=== PATIENT | male | born 1965 | race Caucasian/White ===

== ENCOUNTER → 2017-01-19 | Outpatient (CLI) | payer MEDICAID ==
--- NOTE | 2017-01-20 14:47 | MR ---
EXAM DATE: 01/19/17 PATIENT'S AGE: 51 Patient: MERRY DANGELO Facility: [place], [place] Site . Site : [id number] Study: MRI Shoulder Left [id number]/27/2017 6:42:35 PM Ordering Physician: Janett Vuong Final Report: HISTORY: Left shoulder impingement syndrome. Left shoulder pain. Technique: MRI left shoulder without contrast. Comparison: None. Findings: Rotator cuff: Full-thickness tear of the anterior-mid supraspinatus tendon measuring 0.9 cm in AP dimension by 0.7 cm medial-lateral dimension. There is partial thickness tearing of the remainder of the supraspinatus tendon including foci of high-grade partial-thickness articular surface tearing. Infraspinatus tendon is thickened with intermediate intrasubstance signal. 0.3 x 0.2 mm low-grade partial-thickness articular surface tear of the mid infraspinatus tendon at the insertion. Subscapularis tendon is thickened with intermediate intrasubstance signal. Teres minor tendon is intact. Rotator cuff muscle bulk and signal intensity are within normal limits. Acromioclavicular joint and coracoacromial arch: Moderate AC joint degenerative changes with mild inferior hypertrophy. Hypertrophic changes exert mass effect on the superior supraspinatus muscle. Type 2 acromial morphology. Acromiohumeral interval measures 7-8 mm. Coracoacromial ligament is within normal limits. Coracoclavicular ligament is intact. Biceps-labral complex: Tendinosis and partial tearing of the proximal extra- articular and intra-articular long head biceps tendon. No biceps tendon subluxation. Linear fluid signal extending partially through the chondral labral junction of the posterior labrum at the 9 o`clock position (axial series 501 image 16) compatible with tear. Remainder of the labrum is intact. Glenohumeral joint: No focal cartilage defects. No joint effusion. Bones and soft tissues: No fracture. No marrow replacing process. Small amount of fluid in the subacromial-subdeltoid bursa. Deltoid is intact. Impression: 1. Full-thickness tear of the supraspinatus tendon anteriorly with partial thickness articular surface tearing of the remainder of the tendon. 2. Infraspinatus tendinosis with focal low-grade partial-thickness articular surface tear at the insertion. 3. Subscapularis tendinosis. 4. Long head biceps tendinosis and partial tearing. 5. Small posterior labral tear. 6. AC joint degenerative arthrosis. Dictated by Ronnell Francis MD @ Jan 20 2017 9:37AM (Electronic Signature) Report Signed by Proxy and Original Signed Document filed in the Medical Record. ABBEY
== END ==
LOC: MW.MRI 17:06
PROVIDERS: ATTEND Physician Assistant
DX: M75.41 Impingement syndrome of right shoulder (principal); M75.42 Impingement syndrome of left shoulder; S46.812A Strain of other muscles, fascia and tendons at shoulder and upper arm level, left arm, initial encounter; M75.82 Other shoulder lesions, left shoulder; M75.22 Bicipital tendinitis, left shoulder; M19.012 Primary osteoarthritis, left shoulder
CPT/HCPCS: 73221-26-LT; 73221-LT

== ENCOUNTER → 2017-02-06 | Outpatient (CLI) | payer MEDICAID ==
--- NOTE | 2017-02-09 11:10 | MR ---
EXAMINATION: MRI right shoulder HISTORY: Impingement COMPARISON: Radiographs dated 01/31/2016. TECHNIQUE: Multiplanar and multisequence images obtained of the right shoulder without contrast. FINDINGS: There is a type II acromion. Moderate acromioclavicular osteoarthritic changes are noted. There is a tiny probable full-thickness tear of the supraspinatus tendon at the footplate anteriorl y. There is a trace subacromial and subdeltoid fluid. The infraspinatus and teres minor tendons ap pear intact. Long head biceps tendon is present within the bicipital groove. The proximal aspect of the long head biceps tendon is thickened of mildly increased underlying fluid signal. The posterior superior labrum appears indistinct. The articular surfaces appear preserved. No suspicious bone elsa ow signal changes. No joint effusion. Inferior glenohumeral ligament appears intact. IMPRESSION: 1. Tiny full-thickness tear of the supraspinatus tendon at the footplate. 2. Moderate acromioclavicular osteoarthritic changes with a trace subdeltoid fluid. 3. Long head biceps tendinopathy 4. Posterior superior labral tear.
== END ==
LOC: MW.MRI 14:38
PROVIDERS: ATTEND Physician Assistant
DX: S46.011A Strain of muscle(s) and tendon(s) of the rotator cuff of right shoulder, initial encounter (principal); X58.XXXA Exposure to other specified factors, initial encounter; Y93.9 Activity, unspecified; M75.42 Impingement syndrome of left shoulder
CPT/HCPCS: 73221-26-RT; 73221-RT